=== PATIENT | male | born 1995 ===

== ENCOUNTER 2019-03-07 10:59 | Emergency (ER) | payer SELFPAY ==
[2019-03-07 11:07] VITALS: BP 129/73
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
== END 2019-03-07 13:55 | disposition home or self-care (01) ==
LOC: ED 10:59
DX: L03.113 Cellulitis of right upper limb (principal); T81.49XA Infection following a procedure, other surgical site, initial encounter; Y93.89 Activity, other specified; Y92.89 Other specified places as the place of occurrence of the external cause; Y99.8 Other external cause status